=== PATIENT | female | born 1935 | race Caucasian/White ===

== ENCOUNTER 2019-05-29 13:59 | Outpatient (REF) | payer MEDICARE, SELFPAY ==
[2019-05-29 21:15] LABS: Abs Immature Grans 0.04 k/cumm (0.0-0.09); Absolute Basophil Count 0.03 k/cumm (0.0-0.2); Absolute Eosinophil Count 0.24 k/cumm (0.0-0.7); Absolute Lymphocyte Count 1.62 k/cumm (1.2-3.4); Absolute Monocyte Count 0.69 k/cumm (0.11-0.7); Absolute Neutrophil Count 5.94 k/cumm (1.2-6.7); Basophils % 0.4; Eosinophils % 2.8; HCT 40.1 % (36.0-46.0); HGB 13.2 g/dL (12.0-15.5); Immature Grans % 0.5; Lymphocytes % 18.9; Mean Corp. HGB Concentration 32.9 g/dL (32.0-36.0); Mean Corpuscular Volume 91.1 fL (80-95); Mean Platelet Volume 10.4 fL (8.0-11.0); Monocytes % 8.1; Neutrophils % 69.3; Platelet Count 260 x1000/uL (130-400); RBC Distribution Width 13.2 % (11.7-14.6); White Blood Cell Count 8.56 k/cumm (4.4-10.8)
[2019-05-29 21:32] LABS: Anion Gap 8.2 mmol/L (3-11); BUN 43 mg/dL (7-18); CO2 25.8 mmol/L (21.0-32.0); CREATININE 2.34 mg/dL (0.55-1.02); Calcium 9.7 mg/dL (8.5-10.1); Chloride 109 mmol/L (98-107); Estimated GFR 19.85 (mL/min/1.73m2); Glucose 98 mg/dL (74-106); Potassium 4.4 mmol/L (3.5-5.1); Sodium 143 mmol/L (136-145)
== END 2019-05-29 14:19 ==
LOC: NCHCN 13:59
PROVIDERS: PCP Internal Medicine; Visit Provider Internal Medicine
DX: R94.6 Abnormal results of thyroid function studies (principal); R03.0 Elevated blood-pressure reading, without diagnosis of hypertension; K21.9 Gastro-esophageal reflux disease without esophagitis; K58.9 Irritable bowel syndrome, unspecified
CPT/HCPCS: 80048; 84443; 85025

== ENCOUNTER 2019-06-05 13:01 | Outpatient (REF) | payer MEDICARE, SELFPAY ==
[2019-06-08 13:00] LABS: Lyme Ab w Rflx to Lyme Confirm Negative (Negative)
== END 2019-06-05 13:21 ==
LOC: NCHCN 13:01
PROVIDERS: PCP Internal Medicine; Visit Provider Nurse Practitioner Family
DX: R53.83 Other fatigue (principal)
CPT/HCPCS: 86618

== ENCOUNTER 2019-06-25 16:40 | Outpatient (REF) | payer MEDICARE, SELFPAY ==
[2019-06-25 22:08] LABS: Bacteria Rare HPF (Negative); Crystals Negative HPF (Negative); Epithelial Cells Few HPF (Negative); Mucus Trace (Negative); Other Cells Rare Transitional (Negative); WBC >50 HPF (0-5)
[2019-06-25 22:09] LABS: C & S Indicated? Yes; Casts 3-5 Coarse Granular LPF (Negative)
[2019-06-25 22:20] LABS: Vitamin D 25 Total 31.5 ng/ml (30-100)
[2019-06-25 22:21] LABS: Anion Gap 12.1 mmol/L (3-11); BUN 55 mg/dL (7-18); CO2 22.9 mmol/L (21.0-32.0); CREATININE 3.12 mg/dL (0.55-1.02); Calcium 9.6 mg/dL (8.5-10.1); Chloride 106 mmol/L (98-107); Estimated GFR 14.24 (mL/min/1.73m2); Glucose 105 mg/dL (74-106); Potassium 5.9 mmol/L (3.5-5.1); Sodium 141 mmol/L (136-145); TSH (W/Ref FT4) 4.19 uIU/mL (0.36-3.74); Vitamin B12 666 pg/mL (193-986)
[2019-06-25 22:41] LABS: FREE T4 0.64 ng/dL (0.76-1.46)
[2019-06-26 09:01] LABS: COMMENT (LAB VIEW ONLY) 53.13 mg/dL
[2019-06-26 09:05] LABS: Microalb ug/mg Crea 145.9 ug/mg Cr
[2019-06-29 10:22] LABS: Parathyroid Hormone,Intact 69 pg/mL (19-88)
== END 2019-06-25 17:00 ==
LOC: NCHCN 16:40
PROVIDERS: PCP Internal Medicine; Visit Provider Internal Medicine
DX: N18.6 End stage renal disease (principal); R06.09 Other forms of dyspnea; R82.998 Other abnormal findings in urine
CPT/HCPCS: 80048; 82306; 81015; 82043; 82570; 82607; 83970; 84439; 84443; 87086

== ENCOUNTER 2019-06-29 18:04 | Outpatient (REF) | payer MEDICARE, SELFPAY ==
[2019-06-29 22:41] LABS: Anion Gap 13.1 mmol/L (3-11); BUN 59 mg/dL (7-18); CO2 21.9 mmol/L (21.0-32.0); Calcium 9.8 mg/dL (8.5-10.1); Chloride 106 mmol/L (98-107); Glucose 120 mg/dL (74-106); Potassium 4.9 mmol/L (3.5-5.1); Sodium 141 mmol/L (136-145)
[2019-07-01 17:40] LABS: Albumin, Urine % 28.5 % ((See Note)); Globulins, Urine % 71.5 %; Immunotyping, Urine (See Note); Total Protein Urine 31 mg/dL (See Note)
== END 2019-06-29 18:24 ==
LOC: NCHCN 18:04
PROVIDERS: PCP Internal Medicine; Visit Provider Internal Medicine
DX: N19 Unspecified kidney failure (principal); E87.5 Hyperkalemia; R06.09 Other forms of dyspnea
CPT/HCPCS: 80048; 84156; 84166; 86335; 84165

== ENCOUNTER 2019-06-30 08:17 | Outpatient (CLI) | payer MEDICARE, SELFPAY ==
--- NOTE | 2019-06-30 09:34 | DI.US_ITS ---
EXAM: US RENAL CLINICAL HISTORY: RENAL FAILURE N19. TECHNIQUE: Pedro scale, color and spectral Doppler were used. COMPARISON: No exams were available for comparison FINDINGS: Renal size in cm: Right: 10.8 left: 12.3 Echogenicity: Normal Hydronephrosis: No Cyst or mass: 3.2 x 2.9 x 3.5 centimeter simple cyst in the inferior pole of the left kidney. 0.9 x 0.6 x 1.2 centimeter simple cyst in the midpole of the left kidney. Nephrolithiasis: No Other findings: None Bladder:Normal. The ureteral jets were not visualized during this examination. There is no bladder wall thickening. Prevoid vol:234 cc Postvoid vol:8 cc IMPRESSION: Left renal cysts.
== END 2019-06-30 08:37 ==
PROVIDERS: PCP Internal Medicine; Visit Provider Internal Medicine
DX: N19 Unspecified kidney failure (principal); N28.1 Cyst of kidney, acquired
CPT/HCPCS: 76770

== ENCOUNTER 2019-07-06 15:03 | Outpatient (REF) | payer MEDICARE, SELFPAY ==
[2019-07-06 21:54] LABS: Anion Gap 9.6 mmol/L (3-11); BUN 49 mg/dL (7-18); CO2 24.4 mmol/L (21.0-32.0); CREATININE 2.75 mg/dL (0.55-1.02); Calcium 9.6 mg/dL (8.5-10.1); Chloride 106 mmol/L (98-107); Estimated GFR 16.48 (mL/min/1.73m2); Glucose 101 mg/dL (74-106); Sodium 140 mmol/L (136-145)
== END 2019-07-06 15:23 ==
LOC: NCHCN 15:03
PROVIDERS: PCP Internal Medicine; Visit Provider Internal Medicine
DX: E87.5 Hyperkalemia (principal); N19 Unspecified kidney failure
CPT/HCPCS: 80048

== ENCOUNTER 2019-07-21 14:24 | Outpatient (REF) | payer MEDICARE, SELFPAY ==
[2019-07-21 23:11] LABS: Albumin 3.9 g/dL (3.4-5.0); Anion Gap 9.3 mmol/L (3-11); BUN 38 mg/dL (7-18); CO2 26.7 mmol/L (21.0-32.0); Calcium 9.5 mg/dL (8.5-10.1); Chloride 107 mmol/L (98-107); Estimated GFR 22.49 (mL/min/1.73m2); Glucose 113 mg/dL (74-106); PHOSPHORUS 3.6 mg/dL (2.6-4.7); Potassium 4.3 mmol/L (3.5-5.1); Sodium 143 mmol/L (136-145); TSH (W/Ref FT4) 3.12 uIU/mL (0.36-3.74)
== END 2019-07-21 14:44 ==
LOC: NCHCN 14:24
PROVIDERS: PCP Internal Medicine; Visit Provider Internal Medicine
DX: R53.83 Other fatigue (principal); N19 Unspecified kidney failure
CPT/HCPCS: 80069; 84443

== ENCOUNTER 2019-08-12 20:00 | Outpatient (REF) | payer MEDICARE, SELFPAY ==
[2019-08-12 22:19] LABS: Anion Gap 8.1 mmol/L (3-11); BUN 38 mg/dL (7-18); CO2 27.9 mmol/L (21.0-32.0); CREATININE 1.91 mg/dL (0.55-1.02); Calcium 9.9 mg/dL (8.5-10.1); Chloride 106 mmol/L (98-107); Estimated GFR 25.09 (mL/min/1.73m2); Glucose 89 mg/dL (74-106); Potassium 4.9 mmol/L (3.5-5.1); Sodium 142 mmol/L (136-145)
== END 2019-08-12 20:20 ==
LOC: NCHCN 20:00
PROVIDERS: PCP Internal Medicine; Visit Provider Internal Medicine
DX: I10 Essential (primary) hypertension (principal); N19 Unspecified kidney failure
CPT/HCPCS: 80048

== ENCOUNTER 2019-11-16 12:27 | Outpatient (REF) | payer MEDICARE, SELFPAY ==
[2019-11-16 21:38] LABS: Anion Gap 4.9 mmol/L (3-11); BUN 34 mg/dL (7-18); CO2 30.1 mmol/L (21.0-32.0); CREATININE 1.73 mg/dL (0.55-1.02); Calcium 10.2 mg/dL (8.5-10.1); Chloride 104 mmol/L (98-107); Estimated GFR 28.06 (mL/min/1.73m2); Glucose 96 mg/dL (74-106); Potassium 4.6 mmol/L (3.5-5.1); Sodium 139 mmol/L (136-145)
== END 2019-11-16 12:47 ==
LOC: NCHCN 12:27
PROVIDERS: PCP Internal Medicine; Visit Provider Internal Medicine
DX: I10 Essential (primary) hypertension (principal)
CPT/HCPCS: 80048

== ENCOUNTER 2020-02-10 11:45 | Outpatient (REF) | payer MEDICARE, SELFPAY ==
[2020-02-10 20:57] LABS: Anion Gap 9.8 mmol/L (3-11); BUN 32 mg/dL (7-18); CO2 29.2 mmol/L (21.0-32.0); CREATININE 1.55 mg/dL (0.55-1.02); Calcium 10.1 mg/dL (8.5-10.1); Chloride 103 mmol/L (98-107); Estimated GFR 31.85 (mL/min/1.73m2); Glucose 80 mg/dL (74-106); Potassium 4.4 mmol/L (3.5-5.1); Sodium 142 mmol/L (136-145)
== END 2020-02-10 12:05 ==
LOC: NCHCN 11:45
PROVIDERS: PCP Internal Medicine; Visit Provider Internal Medicine
DX: I10 Essential (primary) hypertension (principal)
CPT/HCPCS: 80048

== ENCOUNTER 2020-07-11 23:04 | Outpatient (REF) | payer MEDICARE, SELFPAY ==
[2020-07-11 21:18] LABS: ALT 18 U/L (14-59); AST 13 U/L (15-37); Albumin 4.1 g/dL (3.4-5.0); Alkaline Phosphatase 73 U/L (46-116); Anion Gap 6.1 mmol/L (3-11); BUN 39 mg/dL (7-18); Bilirubin, Total 0.3 mg/dL (0.2-1.0); CO2 27.9 mmol/L (21.0-32.0); CREATININE 1.46 mg/dL (0.55-1.02); Calcium 9.9 mg/dL (8.5-10.1); Chloride 105 mmol/L (98-107); Estimated GFR 34.13 (mL/min/1.73m2); Glucose 78 mg/dL (74-106); Potassium 4.4 mmol/L (3.5-5.1); Sodium 139 mmol/L (136-145); TSH 2.88 uIU/mL (0.36-3.74); Total Protein 7.2 g/dL (6.4-8.2)
== END 2020-07-11 23:24 ==
LOC: NCHCN 23:04
PROVIDERS: PCP Internal Medicine; Visit Provider Internal Medicine
DX: E03.9 Hypothyroidism, unspecified (principal); N19 Unspecified kidney failure; R03.0 Elevated blood-pressure reading, without diagnosis of hypertension
CPT/HCPCS: 80053; 84443

== ENCOUNTER 2021-11-02 12:57 | Outpatient (REF) | payer MEDICARE, SELFPAY ==
[2021-11-02 21:08] LABS: Anion Gap 6.6 mmol/L (3-11); BUN 38 mg/dL (7-18); CO2 28.4 mmol/L (21.0-32.0); CREATININE 1.5 mg/dL (0.55-1.02); Chloride 104 mmol/L (98-107); Estimated GFR 32.92 (mL/min/1.73m2); Glucose 95 mg/dL (74-106); Potassium 4.6 mmol/L (3.5-5.1); Sodium 139 mmol/L (136-145)
== END 2021-11-02 12:58 | disposition home or self-care (01) ==
LOC: NCHCN 12:57
PROVIDERS: PCP Internal Medicine; Visit Provider Internal Medicine
DX: N18.31 Chronic kidney disease, stage 3a (principal)
CPT/HCPCS: 80048

== ENCOUNTER 2022-02-07 09:00 | Outpatient (REF) | payer MEDICARE, SELFPAY ==
[2022-02-08 14:48] LABS: Anion Gap 9.5 mmol/L (3-11); BUN 34 mg/dL (7-18); CO2 28.5 mmol/L (21.0-32.0); CREATININE 1.4 mg/dL (0.55-1.02); Calcium 10.3 mg/dL (8.5-10.1); Chloride 104 mmol/L (98-107); Estimated GFR 35.65 (mL/min/1.73m2); Glucose 99 mg/dL (74-106); Potassium 4.8 mmol/L (3.5-5.1); Sodium 142 mmol/L (136-145); TSH 3.12 uIU/mL (0.36-3.74); Vitamin B12 456 pg/mL (193-986)
== END 2022-02-08 18:20 | disposition home or self-care (01) ==
LOC: NCHCN 09:00
PROVIDERS: PCP Internal Medicine; Visit Provider Family Medicine
DX: N18.31 Chronic kidney disease, stage 3a (principal); R03.0 Elevated blood-pressure reading, without diagnosis of hypertension; R53.83 Other fatigue
CPT/HCPCS: 80048; 82607; 82746; 84443; 85025

== ENCOUNTER 2022-02-13 14:32 | Outpatient (REF) | payer MEDICARE, SELFPAY ==
[2022-02-13 14:56] LABS: Abs Immature Grans 0.03 10^3/uL (0.0-0.06); Absolute Basophil Count 0.02 10^3/uL (0.0-0.2); Absolute Eosinophil Count 0.05 10^3/uL (0.0-0.7); Absolute Lymphocyte Count 1.85 10^3/uL (1.2-3.4); Absolute Monocyte Count 0.56 10^3/uL (0.1-0.8); Absolute Neutrophil Count 5.39 10^3/uL (1.2-6.7); Basophils % 0.3; Eosinophils % 0.6; HCT 39.3 % (36.0-46.0); HGB 12.6 g/dL (11.2-15.7); Immature Grans % 0.4; Lymphocytes % 23.4; MCH 29.7 pg (27.0-33.0); MCHC 32.1 % (32.0-36.0); MCV 93 fL (80-95); MPV 10.6 fL (8.0-11.0); Monocytes % 7.1; Neutrophils % 68.2; Platelet Count 210 10^3/uL (130-400); RBC 4.24 10^6/uL (3.93-5.22); RDW 13.5 % (11.7-14.6); RDW-SD 45.4 fL
== END 2022-02-13 14:33 | disposition home or self-care (01) ==
LOC: NCHCN 14:32
PROVIDERS: PCP Internal Medicine; Visit Provider Family Medicine
DX: R53.83 Other fatigue (principal); N18.31 Chronic kidney disease, stage 3a; R03.0 Elevated blood-pressure reading, without diagnosis of hypertension
CPT/HCPCS: 82746; 85025

== ENCOUNTER 2022-09-28 15:05 | Outpatient (REF) | payer MEDICARE, SELFPAY ==
[2022-09-28 15:24] LABS: Abs Immature Grans 0.02 10^3/uL (0.0-0.06); Absolute Basophil Count 0.04 10^3/uL (0.0-0.2); Absolute Eosinophil Count 0.07 10^3/uL (0.0-0.7); Absolute Lymphocyte Count 1.76 10^3/uL (1.2-3.4); Absolute Monocyte Count 0.54 10^3/uL (0.1-0.8); Absolute Neutrophil Count 5.72 10^3/uL (1.2-6.7); Basophils % 0.5; Eosinophils % 0.9; HCT 40.9 % (36.0-46.0); HGB 13.4 g/dL (11.2-15.7); Immature Grans % 0.2; Lymphocytes % 21.6; MCHC 32.8 % (32.0-36.0); MCV 92 fL (80-95); MPV 10.5 fL (8.0-11.0); Monocytes % 6.6; Neutrophils % 70.2; Platelet Count 220 10^3/uL (130-400); RBC 4.46 10^6/uL (3.93-5.22); RDW 13.5 % (11.7-14.6); RDW-SD 46.2 fL; WBC 8.15 10^3/uL (4.4-10.8)
[2022-09-28 15:56] LABS: ALT 18 U/L (14-59); AST 16 U/L (15-37); Albumin 3.9 g/dL (3.4-5.0); Alkaline Phosphatase 105 U/L (46-116); BUN 36 mg/dL (7-18); Bilirubin, Total 0.3 mg/dL (0.2-1.0); CREATININE 1.3 mg/dL (0.55-1.02); Calcium 10.3 mg/dL (8.5-10.1); Chloride 107 mmol/L (98-107); Estimated GFR 40.05 (mL/min/1.73m2); Glucose 99 mg/dL (74-106); Potassium 5.1 mmol/L (3.5-5.1); Sodium 141 mmol/L (136-145); Total Protein 7.5 g/dL (6.4-8.2)
== END 2022-09-28 15:06 | disposition home or self-care (01) ==
LOC: NCHCN 15:05
PROVIDERS: PCP Internal Medicine; Visit Provider Family Medicine
DX: R53.83 Other fatigue (principal)
CPT/HCPCS: 80053; 84443; 85025

== ENCOUNTER 2023-08-14 16:28 | Outpatient (REF) | payer MEDICARE, SELFPAY ==
[2023-08-14 22:14] LABS: HGB 13.7 g/dL (11.2-15.7); MCH 29.9 pg (27.0-33.0); MCHC 32.6 % (32.0-36.0); MCV 92 fL (80-95); MPV 10.5 fL (8.0-11.0); Platelet Count 216 10^3/uL (130-400); RBC 4.58 10^6/uL (3.93-5.22); RDW 13.7 % (11.7-14.6); RDW-SD 46.4 fL; WBC 7.09 10^3/uL (4.4-10.8)
[2023-08-14 22:57] LABS: Anion Gap 11.1 mmol/L (3-11); BUN 36 mg/dL (7-18); CO2 25.9 mmol/L (21.0-32.0); CREATININE 1.5 mg/dL (0.55-1.02); Calcium 10.3 mg/dL (8.5-10.1); Chloride 107 mmol/L (98-107); Estimated GFR 33.52 (mL/min/1.73m2); Glucose 107 mg/dL (74-106); Potassium 4.7 mmol/L (3.5-5.1); Sodium 144 mmol/L (136-145); TSH (W/Ref FT4) 2.27 uIU/mL (0.36-3.74); Vitamin B12 419 pg/mL (193-986)
== END 2023-08-14 16:29 | disposition home or self-care (01) ==
LOC: NCHCN 16:28
PROVIDERS: PCP Internal Medicine; Visit Provider Internal Medicine
DX: F03.90 Unspecified dementia, unspecified severity, without behavioral disturbance, psychotic disturbance, mood disturbance, and anxiety (principal); E02 Subclinical iodine-deficiency hypothyroidism; N18.31 Chronic kidney disease, stage 3a
CPT/HCPCS: 80048; 85027; 82607; 84443

== ENCOUNTER 2023-12-16 15:00 | Outpatient (REF) | payer MEDICARE, SELFPAY ==
[2023-12-16 21:53] LABS: Abs Immature Grans 0.02 10^3/uL (0.0-0.06); Absolute Basophil Count 0.04 10^3/uL (0.0-0.2); Absolute Eosinophil Count 0.06 10^3/uL (0.0-0.7); Absolute Lymphocyte Count 1.81 10^3/uL (1.2-3.4); Absolute Monocyte Count 0.49 10^3/uL (0.1-0.8); Absolute Neutrophil Count 5.91 10^3/uL (1.2-6.7); Basophils % 0.5 %; Eosinophils % 0.7 %; HCT 44.4 % (36.0-46.0); HGB 14.6 g/dL (11.2-15.7); Immature Grans % 0.2 %; Lymphocytes % 21.7 %; MCH 30.6 pg (27.0-33.0); MCHC 32.9 % (32.0-36.0); MCV 93 fL (80-95); Monocytes % 5.9 %; RBC 4.77 10^6/uL (3.93-5.22); RDW 13.5 % (11.7-14.6); RDW-SD 46.4 fL; WBC 8.33 10^3/uL (4.4-10.8)
[2023-12-16 22:05] LABS: ALT 15 U/L (14-59); AST 22 U/L (15-37); Albumin 4.1 g/dL (3.4-5.0); Alkaline Phosphatase 99 U/L (46-116); Anion Gap 7.7 mmol/L (3-11); BUN 29 mg/dL (7-18); CO2 27.3 mmol/L (21.0-32.0); CREATININE 1.3 mg/dL (0.55-1.02); Calcium 10.3 mg/dL (8.5-10.1); Chloride 105 mmol/L (98-107); Estimated GFR 39.55 (mL/min/1.73m2); Glucose 103 mg/dL (74-106); Potassium 4.9 mmol/L (3.5-5.1); Sodium 140 mmol/L (136-145); Total Protein 7.5 g/dL (6.4-8.2)
[2023-12-16 22:14] LABS: Platelet Count 180 10^3/uL (130-400)
== END 2023-12-16 15:01 | disposition home or self-care (01) ==
LOC: NCHCN 15:00
PROVIDERS: PCP Internal Medicine; Visit Provider Family Medicine
DX: R59.0 Localized enlarged lymph nodes (principal)
CPT/HCPCS: 80053; 85025

== ENCOUNTER 2024-02-10 12:31 | Outpatient (REF) | payer MEDICARE, SELFPAY ==
[2024-02-10 15:31] LABS: ALT 21 U/L (14-59); AST 17 U/L (15-37); Albumin 3.8 g/dL (3.4-5.0); Alkaline Phosphatase 94 U/L (46-116); BUN 31 mg/dL (7-18); Bilirubin, Total 0.47 mg/dL (0.2-1.0); CREATININE 1.5 mg/dL (0.55-1.02); Calcium 10.3 mg/dL (8.5-10.1); Chloride 107 mmol/L (98-107); Estimated GFR 33.31 (mL/min/1.73m2); Glucose 82 mg/dL (74-106); Potassium 4.4 mmol/L (3.5-5.1); Sodium 143 mmol/L (136-145); Vitamin D 25 Total 49.9 ng/mL (30-100)
== END 2024-02-10 12:32 | disposition home or self-care (01) ==
LOC: NCHCN 12:31
PROVIDERS: PCP Internal Medicine; Visit Provider Internal Medicine
DX: N18.31 Chronic kidney disease, stage 3a (principal)
CPT/HCPCS: 80053; 82306

== ENCOUNTER 2024-08-10 12:50 | Outpatient (REF) | payer MEDICARE, SELFPAY ==
[2024-08-10 16:03] LABS: ALT 18 U/L (14-59); AST 19 U/L (15-37); Albumin 3.8 g/dL (3.4-5.0); Alkaline Phosphatase 108 U/L (46-116); Anion Gap 7.5 mmol/L (3-11); BUN 21 mg/dL (7-18); Bilirubin, Total 0.49 mg/dL (0.2-1.0); CO2 28.5 mmol/L (21.0-32.0); CREATININE 1.5 mg/dL (0.55-1.02); Calcium 10.1 mg/dL (8.5-10.1); Chloride 106 mmol/L (98-107); Estimated GFR 33.31 (mL/min/1.73m2); Glucose 93 mg/dL (74-106); Potassium 4.3 mmol/L (3.5-5.1); Sodium 142 mmol/L (136-145); Total Protein 7.6 g/dL (6.4-8.2); Vitamin D 25 Total 55.1 ng/mL (30-100)
== END 2024-08-10 12:51 | disposition home or self-care (01) ==
LOC: NCHCN 12:50
PROVIDERS: PCP Internal Medicine; Visit Provider Internal Medicine
DX: N18.31 Chronic kidney disease, stage 3a (principal); M85.80 Other specified disorders of bone density and structure, unspecified site
CPT/HCPCS: 80053; 82306

== ENCOUNTER 2025-05-10 13:02 | Outpatient (REF) | payer MEDICARE, SELFPAY ==
[2025-05-10 15:47] LABS: HCT 40.2 % (36.0-46.0); HGB 13.3 g/dL (11.2-15.7); MCH 31.0 pg (27.0-33.0); MCHC 33.1 % (32.0-36.0); MCV 94 fL (80-95); MPV 10.1 fL (8.0-11.0); Platelet Count 230 10^3/uL (130-400); RBC 4.29 10^6/uL (3.93-5.22); RDW 13.3 % (11.7-14.6); RDW-SD 45.7 fL; WBC 7.83 10^3/uL (4.4-10.8)
[2025-05-10 16:07] LABS: Anion Gap 8.5 mmol/L (3-11); BUN 27 mg/dL (9-23); CO2 29.5 mmol/L (20.0-31.0); Calcium 10.3 mg/dL (8.3-10.6); Chloride 105 mmol/L (98-107); Glucose 92 mg/dL (74-106); Potassium 4.2 mmol/L (3.5-5.1); Sodium 143 mmol/L (136-145)
[2025-05-10 16:10] LABS: TSH (W/Ref FT4) 3.07 uIU/mL (0.55-4.78)
== END 2025-05-10 13:03 | disposition home or self-care (01) ==
LOC: NCHCN 13:02
PROVIDERS: PCP Internal Medicine; Visit Provider Internal Medicine
DX: N18.31 Chronic kidney disease, stage 3a (principal); E02 Subclinical iodine-deficiency hypothyroidism
CPT/HCPCS: 80048; 85027; 84443